=== PATIENT | male | born 1945 | race Caucasian/White ===

== ENCOUNTER 2016-08-10 03:01 | Emergency (ER) | payer OTHER ==
--- NOTE | 2016-08-10 03:06 | EDPHY ---
H & P HPI/ROS: HPI CHIEF COMPLAINT: I would like my Ngo catheter changed HISTORY OF PRESENT ILLNESS: This patient is a 70-year-old male who is a paraplegic L3-L4 partial, he presents emergency room in the middle the night by EMS from his private residence requesting that he get his Ngo catheter changed. This patient tells me that he has a indwelling Ngo catheter that he usually gets changed whenever he feels like it. He tells me the last time his Ngo catheter was changed was 03/17/2016. He used to get his Ngo catheter changed every 6 weeks however he tells me that his body was rejecting the catheter and now he gets whenever he feels the need to. He tells me it has been leaking urine and he tells me that because it has been leaking urine he is requesting a Ngo catheter change. When I asked him where he gets catheter change normally he tells me he just comes to the emergency room for the past 4-5 fully changes over the past few years. Patient denies fever, back pain, abdominal pain, chest pain or shortness of breath he does tell me that he usually gets 5 mg of Valium to help with bladder spasms when we changed his Ngo out. Past Medical History: Incomplete Paraplegic partial L3-L4 level, colostomy, indwelling Ngo, Chronic back pain, SVT, history of urinary sepsis, history of bacteremia, hypoxic respiratory failure, Past Surgical History: Colostomy, back surgery, indwelling Ngo Social History: Denies use of drugs alcohol tobacco products, lives independently in [place] in his own house Family History: Noncontributory ROS REVIEW OF SYSTEMS: A comprehensive 10 point review of systems is otherwise negative aside from elements mentioned in the history of present illness. Exam Constitutional appears well nontoxic, no acute distress, triage nursing summary reviewed, vital signs reviewed, awake/alert. Eyes normal conjunctivae and sclera, EOMI, PERRLA. HENT normal inspection, atraumatic, moist mucus membranes, no epistaxis, neck supple/ no meningismus, no raccoon eyes. Respiratory clear to auscultation bilaterally, normal breath sounds, no respiratory distress, no wheezing. Cardiovascular rate normal, regular rhythm, no murmur, no edema, distal pulses normal. Gastrointestinal soft abdomen, colostomy left lower abdomen, multiple abdominal scars , no rebound, no guarding, normal bowel sounds, no distension, no pulsatile mass. Genitourinary no CVA tenderness. Ngo catheter entrance at the base of the penis dorsal aspect the Ngo catheter does not transversus penile urethra. Musculoskeletal no midline vertebral tenderness, full range of motion, no calf swelling, no tenderness of extremities, no meningismus, good pulses, neurovascularly intact. Skin pink, warm, & dry, no rash, skin atraumatic. Neurologic awake, alert and oriented x 3, AAOx3, moves all 4 extremities equally, motor intact, sensory intact, CN II-XII intact, normal cerebellar, normal vision, normal speech. Psychiatric normal mood/affect. Heme/Lymph/Immune no lymphadenopathy. Differential Diagnosis: Includes but is not limited to in a particular order, need for Ngo change, old Ngo, obstructive fully, leaking Ngo, need for suprapubic or partial suprapubic Ngo catheter change this Ngo catheter transverses the dorsum of the base of the penile shaft does not go through his penile urethra Medical Decision Making: This patient appears well here nontoxic no fever, is not septic has no complaints requesting p.o. Valium for spasms when Ngo goes in. Patient is a fully that enters the base of the dorsum of the penis. This will be changed for the patient at his request. Re-evaluation: 0424: Patient has new Ngo catheter in place. It is not leaking. Patient is comfortable agreeable for discharge. He is resting comfortably no acute distress. Good urine output from new Ngo catheter. Source: Patient - Personal History Tetanus Vaccine Date: 2-3 years ago - Medical/Surgical History Hx Asthma: No Hx Chronic Respiratory Disease: No Hx Diabetes: No Hx Cardiac Disease: No Hx Renal Disease: No Hx Cirrhosis: No Hx Alcoholism: No Hx HIV/AIDS: No Hx Splenectomy or Spleen Trauma: No Other PMH: Back surgery x5, shoulder surgery x2, hand surgery, colostomy, paraplegic since 1970; chronic indwelling ngo catheter;botox to bladder; chronic pain. - Social History Smoking Status: Never smoked Constitutional: Initial Vital Signs Temperature (C) 36.4 C 08/10/16 03:05 Heart Rate 63 08/10/16 03:05 Respiratory Rate 18 08/10/16 03:05 Blood Pressure 140/85 H 08/10/16 03:05 O2 Sat (%) 89 L 08/10/16 03:05 O2 Delivery Mode Room Air Allergies/Adverse Reactions: promethazine HCl [From Phenergan] Allergy (Intermediate, Verified 03/17/16 04:53 ) Other-Enter Comments ANANDA Inhibitors [Ananda Inhibitors] Allergy (Mild, Verified 03/17/16 04:53) Penicillins Allergy (Mild, Verified 03/17/16 04:53) Rash DUST AND MOLDS Allergy (Intermediate, Uncoded 05/07/14 07:40) Rash Home Medications: Medication Instructions Recorded Bisoprolol Fumarate [Zebeta (*)] 5 mg PO DAILY 03/02/15 Losartan Potassium [Cozaar] 100 mg PO DAILY 03/02/15 Travoprost Z 0.004% [Travatan Z 1 drops EACHEYE HS 03/02/15 0.004% (*)] amLODIPine BESYLATE [Norvasc 10 mg 10 mg PO DAILY 03/02/15 (*)] Acetaminophen [Tylenol 325mg (*)] 325 - 650 mg PO Q4 PRN #0 tab 05/16/15 Lyrica 08/10/16 traZODone 08/10/16 Medical Decision Making - Data Points Medications Given: Discontinued Medications Diazepam (Valium) 5 mg PO EDNOW ONE Stop: 08/10/16 03:14 Last Admin: 08/10/16 03:26 Dose: 5 mg Departure - Departure Disposition: Home, Routine, Self-Care Clinical Impression: Ngo catheter in place Problem with Ngo catheter Qualifiers: Encounter type: initial encounter Qualifier Code: (T83.9XXA) Unspecified complication of genitourinary prosthetic device, implant and graft, initial encounter Condition: Good Instructions: Ngo Catheter Placement and Care (ED) Referrals: Jose Alberto Carmichael MD [Primary Care Provider] - As per Instructions
[2016-08-10] MEDS ORDERED: DIAZEPAM 5 MG TAB PO ONE (03:13)
[2016-08-10 05:27] VITALS: BP 98/54; PULSE 70; RESP 14; TEMP 97.7; O2SAT 93
== END 2016-08-10 05:26 | disposition home or self-care (01) ==
LOC: EDUNIT#
PROC: 0T9B70Z Drainage of Bladder with Drainage Device, Via Natural or Artificial Opening (ICD-10-PCS; principal; 2016-08-10)
DX: T83.9XXA Unspecified complication of genitourinary prosthetic device, implant and graft, initial encounter (principal); Y73.2 Prosthetic and other implants, materials and accessory gastroenterology and urology devices associated with adverse incidents

== ENCOUNTER 2016-09-08 18:16 | Emergency (ER) | payer OTHER ==
[2016-09-08] MEDS ORDERED: DIAZEPAM 5 MG TAB PO ONE (18:44)
--- NOTE | 2016-09-08 19:25 | EDPHY ---
H & P Stated Complaint: SPASMS IN BLADDER- POSSIBLE DISLODGED CATH Time Seen by Provider: 09/08/16 18:26 HPI/ROS: CHIEF COMPLAINT: Ngo catheter dislodged HISTORY OF PRESENT ILLNESS: 70-year-old male paraplegia and chronic indwelling Ngo catheter presents emergency department complaining of bladder spasms and a Ngo catheter that is not draining urine. Patient was napping this afternoon when he turned over and talked on his Ngo catheter, since this time he has been draining urine around the catheter and has had intermittent bladder spasms. He denies nausea or vomiting, no fevers., no blood in urine. REVIEW OF SYSTEMS: A comprehensive 10 point review of systems is otherwise negative aside from elements mentioned in the history of present illness. 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 - Social History Smoking Status: Never smoked - Physical Exam Exam: GEN: Awake, alert, oriented, no acute distress RESP: nl resp effort Abdomen: Soft, nontender : Ngo catheter inserted at base of penis, no surrounding erythema or bleeding. Constitutional: Initial Vital Signs Temperature (C) 36.3 C 09/08/16 18:17 Heart Rate 66 09/08/16 18:17 Respiratory Rate 18 09/08/16 18:17 Blood Pressure 139/81 H 09/08/16 18:17 O2 Sat (%) 95 09/08/16 18:17 O2 Delivery Mode Room Air Allergies/Adverse Reactions: promethazine HCl [From Phenergan] Allergy (Intermediate, Verified 03/17/16 04:53 ) Other-Enter Comments ANANDA Inhibitors [Ananda Inhibitors] Allergy (Mild, Verified 03/17/16 04:53) Penicillins Allergy (Mild, Verified 03/17/16 04:53) Rash DUST AND MOLDS Allergy (Intermediate, Uncoded 05/07/14 07:40) Rash Home Medications: Medication Instructions Recorded Bisoprolol Fumarate [Zebeta (*)] 5 mg PO DAILY 03/02/15 Losartan Potassium [Cozaar] 100 mg PO DAILY 03/02/15 Travoprost Z 0.004% [Travatan Z 1 drops EACHEYE HS 03/02/15 0.004% (*)] amLODIPine BESYLATE [Norvasc 10 mg 10 mg PO DAILY 03/02/15 (*)] Acetaminophen [Tylenol 325mg (*)] 325 - 650 mg PO Q4 PRN #0 tab 05/16/15 Ciprofloxacin [Cipro] 500 mg PO BID #6 tab 08/10/16 Lyrica 08/10/16 traZODone 08/10/16 Medical Decision Making ED Course/Re-evaluation: Ngo catheter removed by nurse and new Ngo catheter placed, good urine return. Patient will be discharged with instructions to return for any questions or concerns. - Data Points Medications Given: Discontinued Medications Diazepam (Valium) 5 mg PO EDNOW ONE Stop: 09/08/16 18:45 Last Admin: 09/08/16 18:52 Dose: 5 mg Departure - Departure Disposition: Home, Routine, Self-Care Clinical Impression: Malfunction of Ngo catheter Qualifiers: Encounter type: initial encounter Qualified Code(s): T83.011A - Breakdown ( mechanical) of indwelling urethral catheter, initial encounter Condition: Good Instructions: Ngo Catheter Placement and Care (ED) Additional Instructions: Return to the emergency department for any new symptoms, questions or concerns. Referrals: Jose Alberto Carmichael MD [Primary Care Provider] - As per Instructions
[2016-09-08 19:34] VITALS: BP 132/76; PULSE 81; RESP 17; TEMP 98.1; O2SAT 96
== END 2016-09-08 19:33 | disposition home or self-care (01) ==
PROC: 0T9B70Z Drainage of Bladder with Drainage Device, Via Natural or Artificial Opening (ICD-10-PCS; principal; 2016-09-08)
DX: T83.011A Breakdown (mechanical) of indwelling urethral catheter, initial encounter (principal); Y82.8 Other medical devices associated with adverse incidents

== ENCOUNTER 2016-11-06 19:50 | Emergency (ER) | payer OTHER ==
[2016-11-06 19:59] VITALS: BP 137/82; PULSE 84; RESP 16; TEMP 97.7; O2SAT 92
[2016-11-06] MEDS ORDERED: DIAZEPAM 5 MG TAB ONE (20:18)
--- NOTE | 2016-11-06 20:19 | EDPHY ---
H & P Stated Complaint: leaking Ngo, bladder spasms x3-4h Time Seen by Provider: 11/06/16 20:05 HPI/ROS: Chief Complaint: Bladder spasm, ngo problem HPI: 71-year-old L4-5 paraplegic with an indwelling Ngo catheter presenting with back pain and cramping consistent with bladder spasms. Patient states that he last had his Ngo changed about 10 weeks ago which is the usual time friend that he has his catheter changed. He has been having increasing spasm and some leaking around the catheter site for the last 3-4 hours. No fevers or chills. Has not had frequent urinary tract infections and states the last was about 4 years ago. No nausea or vomiting. He is here for catheter change ROS: 10 point Review of Systems is negative except as noted in the HPI. PMH: Paraplegic, ileostomy, indwelling Ngo catheter, hypertension Social History: No smoking, no alcohol, no recreational drug use Family History: non-contributory Physical Exam: Gen: Awake, Alert, No Distress HEENT: Nose: no rhinorrhea Eyes: PERRLA, EOMI Mouth: Moist mucosa Neck: Supple, no JVD Chest: No distress Heart: Normal radial pulses Abd: Soft, ileostomy site is nontender, well perfused, no guarding Skin: no rash Neuro: CN II-XII intact, Sensation grossly in bilateral upper extremities - Personal History Current Tetanus/Diphtheria Vaccine: Yes Current Tetanus Diphtheria and Acellular Pertussis (TDAP): Yes Tetanus Vaccine Date: 2008 - Medical/Surgical History Hx Asthma: No Hx Chronic Respiratory Disease: No Hx Diabetes: No Hx Cardiac Disease: No Hx Renal Disease: No Hx Cirrhosis: No Hx Alcoholism: No Hx HIV/AIDS: No Hx Splenectomy or Spleen Trauma: No Other PMH: Back surgery x5, shoulder surgery x2, hand surgery, colostomy, paraplegic since 1970; chronic indwelling ngo catheter;botox to bladder; chronic pain., 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 - Social History Smoking Status: Never smoked Constitutional: Initial Vital Signs Temperature (C) 36.5 C 11/06/16 19:57 Heart Rate 84 11/06/16 19:57 Respiratory Rate 16 11/06/16 19:57 Blood Pressure 137/82 H 11/06/16 19:57 O2 Sat (%) 92 11/06/16 19:57 O2 Delivery Mode Room Air Allergies/Adverse Reactions: promethazine HCl [From Phenergan] Allergy (Intermediate, Verified 03/17/16 04:53 ) Other-Enter Comments ANANDA Inhibitors [Ananda Inhibitors] Allergy (Mild, Verified 03/17/16 04:53) Penicillins Allergy (Mild, Verified 03/17/16 04:53) Rash DUST AND MOLDS Allergy (Intermediate, Uncoded 05/07/14 07:40) Rash Home Medications: Medication Instructions Recorded Bisoprolol Fumarate [Zebeta (*)] 5 mg PO DAILY 03/02/15 Losartan Potassium [Cozaar] 100 mg PO DAILY 03/02/15 Travoprost Z 0.004% [Travatan Z 1 drops EACHEYE HS 03/02/15 0.004% (*)] amLODIPine BESYLATE [Norvasc 10 mg 10 mg PO DAILY 03/02/15 (*)] Acetaminophen [Tylenol 325mg (*)] 325 - 650 mg PO Q4 PRN #0 tab 05/16/15 Lyrica 08/10/16 traZODone 08/10/16 Ciprofloxacin [Cipro] 500 mg PO BID #6 tab 11/06/16 Medical Decision Making - Data Points Medications Given: Discontinued Medications Diazepam (Valium) 5 mg PO EDNOW ONE Stop: 11/06/16 20:26 Last Admin: 11/06/16 20:26 Dose: 5 mg Departure - Departure Disposition: Home, Routine, Self-Care Clinical Impression: Ngo catheter problem Condition: Good Instructions: Ngo Catheter Placement and Care (ED) Additional Instructions: Follow up with primary care physician in 3-4 days for re-evaluation. Return emergency department for fevers, chills, lightheadedness, nausea, vomiting, or any other concerns. Referrals: Jose Alberto Carmichael MD [Primary Care Provider] - As per Instructions Prescriptions: Ciprofloxacin [Cipro] 500 mg PO BID #6 tab
[2016-11-06] MEDS ORDERED: DIAZEPAM 5 MG TAB PO ONE (20:25)
[2016-11-06 21:04] LABS: COLOR YELLOW; LEUKOCYTE ESTERASE,URINE 3+ (NEGATIVE); NITRITE,URINE NEGATIVE (NEGATIVE)
[2016-11-06 21:30] LABS: BACTERIA 3+ /hpf (NONE SEEN); MUCUS 3+ /lpf (NONE-1+); WBC,URINE 50-182 /hpf (0-3)
== END 2016-11-06 20:50 | disposition home or self-care (01) ==
DX: T83.038A Leakage of other urinary catheter, initial encounter (principal); Y82.8 Other medical devices associated with adverse incidents

== ENCOUNTER 2016-12-24 03:19 | Emergency (ER) | payer OTHER ==
[2016-12-24] MEDS ORDERED: DIAZEPAM 5 MG TAB ONE (03:31)
[2016-12-24] MEDS ORDERED: DIAZEPAM 5 MG TAB PO ONE (03:38)
[2016-12-24 03:46] VITALS: PULSE 91
[2016-12-24 04:34] VITALS: BP 146/93; RESP 73; TEMP 98.2; O2SAT 92
--- NOTE | 2016-12-24 04:37 | EDPHY ---
H & P Time Seen by Provider: 12/24/16 03:23 HPI/ROS: HPI The patient presents brought in by ambulance for urinary retention. He has an indwelling Ngo in place because of neurogenic bladder from paraplegia. He says he noted bladder spasms earlier tonight. He was unable to void and felt distension of his abdomen. This happens periodically. He called the on-call urologist and was instructed to come to the emergency room. REVIEW OF SYSTEMS Constitutional: No fever, no chills. Eyes: No discharge. ENT: No sore throat. Cardiovascular: No chest pain, no palpitations. Respiratory: No cough, no shortness of breath. Gastrointestinal: No abdominal pain, no vomiting. Genitourinary: No hematuria. Musculoskeletal: No back pain. Skin: No rashes. Neurological: No headache. PMHx: Paraplegia, chronic indwelling Ngo Soc Hx: Lives at home PHYSICAL General Appearance: Alert, no distress Eyes: Pupils equal and round no pallor or injection ENT, Mouth: Mucous membranes moist Respiratory: Breathing comfortably Cardiovascular: Regular rate and rhythm Gastrointestinal: Abdomen is soft and non-tender, no masses, bowel sounds normal Neurological: A&O Skin: Warm and dry, no rashes Musculoskeletal: Neck is supple non tender Extremities: Lower extremities with atrophy Psychiatric: Patient is oriented X 3, there is no agitation Source: Patient, EMS - Personal History Tetanus Vaccine Date: 2008 - Medical/Surgical History Hx Asthma: No Hx Chronic Respiratory Disease: No Hx Diabetes: No Hx Cardiac Disease: No Hx Renal Disease: No Hx Cirrhosis: No Hx Alcoholism: No Hx HIV/AIDS: No Hx Splenectomy or Spleen Trauma: No Other PMH: Back surgery x5, shoulder surgery x2, hand surgery, colostomy, paraplegic since 1970; chronic indwelling ngo catheter;botox to bladder; chronic pain., 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 - Social History Smoking Status: Never smoked Constitutional: Initial Vital Signs Temperature (C) 36.7 C 12/24/16 03:20 Heart Rate 91 12/24/16 03:20 Respiratory Rate 18 12/24/16 03:20 Blood Pressure 158/110 H 12/24/16 03:20 O2 Sat (%) 95 12/24/16 03:20 O2 Delivery Mode Room Air Allergies/Adverse Reactions: promethazine HCl [From Phenergan] Allergy (Intermediate, Verified 12/24/16 03:39 ) Other-Enter Comments ANANDA Inhibitors [Ananda Inhibitors] Allergy (Mild, Verified 12/24/16 03:39) Penicillins Allergy (Mild, Verified 12/24/16 03:39) Rash DUST AND MOLDS Allergy (Intermediate, Uncoded 12/24/16 03:39) Rash Home Medications: Medication Instructions Recorded Bisoprolol Fumarate [Zebeta (*)] 5 mg PO DAILY 03/02/15 Losartan Potassium [Cozaar] 100 mg PO DAILY 03/02/15 Travoprost Z 0.004% [Travatan Z 1 drops EACHEYE HS 03/02/15 0.004% (*)] amLODIPine BESYLATE [Norvasc 10 mg 10 mg PO DAILY 03/02/15 (*)] Acetaminophen [Tylenol 325mg (*)] 325 - 650 mg PO Q4 PRN #0 tab 05/16/15 Lyrica 08/10/16 traZODone 08/10/16 Ciprofloxacin [Cipro] 500 mg PO BID #6 tab 11/06/16 Ciprofloxacin 500Mg Prepack#2 1 btl TAKEHOME EDNOW #0 btl 12/24/16 [Cipro 500Mg Prepack#2] Ciprofloxacin [Cipro] 500 mg PO BID #6 tab 12/24/16 Omeprazole 12/24/16 Oxybutynin 12/24/16 Medical Decision Making Differential Diagnosis: This is a 71-year-old man who is a paraplegic with chronic indwelling Ngo who presents brought in by ambulance for urinary retention. This happens periodically and he believes it is related to bladder spasm. Other possibilities include urinary tract infection or BPH. In the emergency room new Ngo catheter was placed and drained about 300 mL of urine. The patient felt much better. He requests ciprofloxacin as he has taken this for prophylaxis several times before. I will prescribe this for him and I have advised him to follow up with his urologist. - Data Points Medications Given: Discontinued Medications Ciprofloxacin (Cipro 500mg Prepack#2) 1 btl TAKEHOME EDNOW ONE Stop: 12/24/16 04:46 Last Admin: 12/24/16 04:46 Dose: 1 btl Diazepam (Valium) 5 mg PO EDNOW ONE Stop: 12/24/16 03:39 Last Admin: 12/24/16 03:46 Dose: 5 mg Departure - Departure Disposition: Home, Routine, Self-Care Clinical Impression: Encounter for Ngo catheter replacement Condition: Good Instructions: Ciprofloxacin (By mouth), Ngo Catheter Placement and Care (ED) Referrals: Edwar Prince MD [Medical Doctor] - As per Instructions Prescriptions: Ciprofloxacin [Cipro] 500 mg PO BID #6 tab Ciprofloxacin 500Mg Prepack#2 [Cipro 500Mg Prepack#2] 1 btl TAKEYASHIRAE EDNOW #0 btl
[2016-12-24] MEDS ORDERED: CIPROFLOXACIN 500MG PREPACK#2 BTL TAKEHOME ONE ×2 (04:42→04:45)
== END 2016-12-24 05:11 | disposition home or self-care (01) ==
LOC: EDUNIT#
PROC: 0T9B70Z Drainage of Bladder with Drainage Device, Via Natural or Artificial Opening (ICD-10-PCS; principal; 2016-12-24)
DX: Z46.6 Encounter for fitting and adjustment of urinary device (principal)

== ENCOUNTER → 2017-01-27 | Outpatient (CLI) | payer OTHER ==
[~2017-01-27] MED LIST: IOPAMIDOL (ISOVUE-300) 100 ML BTL ONE
[2017-01-27 15:54] LABS: CREATININE 0.8 mg/dL (0.7-1.3); GLOMERULAR FILTRATION RATE > 60
== END ==
LOC: FIMAGING 14:40
PROVIDERS: ATTEND Specialist
DX: Z01.818 Encounter for other preprocedural examination (principal); R32 Unspecified urinary incontinence; Z96.0 Presence of urogenital implants; R93.49 Abnormal radiologic findings on diagnostic imaging of other urinary organs
CPT/HCPCS: 74177; Q9967

== ENCOUNTER 2017-03-29 01:34 | Emergency (ER) | payer OTHER ==
[2017-03-29 01:56] VITALS: RESP 18; TEMP 98.6
--- NOTE | 2017-03-29 02:16 | EDPHY ---
H & P Stated Complaint: lower abd pain w/ diarrhea Time Seen by Provider: 03/29/17 02:06 HPI/ROS: Chief Complaint: Abdominal pain HPI: 71-year-old paraplegic with an ileostomy presenting with abdominal pain. Patient states that last week he had watery stools. Feels resolved 2 days ago but yesterday developed lower abdominal pain. This got worse significantly at midnight. No nausea or vomiting. He has continued to have ostomy output. States very dark but he is on iron supplements and has been taking Pepto- Bismol. Pain is primarily on the left hand side but he also has some on the right as well. No fevers or chills. Patient also states that he has is having some difficulty with his Ngo catheter, but he believes this is unrelated abdominal pain. ROS: 10 point Review of Systems is negative except as noted in the HPI. 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 Nontender. Back: no CVA tenderness, no midline tenderness Ext: no edema, non-tender Skin: no rash Neuro: CN II-XII intact, Sensation grossly intact, Strength 5/5 in bilateral upper and lower extremities - Personal History Current Tetanus Diphtheria and Acellular Pertussis (TDAP): Yes Tetanus Vaccine Date: 2008 - Medical/Surgical History Hx Asthma: No Hx Chronic Respiratory Disease: No Hx Diabetes: No Hx Cardiac Disease: No Hx Renal Disease: No Hx Cirrhosis: No Hx Alcoholism: No Hx HIV/AIDS: No Hx Splenectomy or Spleen Trauma: No Other PMH: Back surgery x5, shoulder surgery x2, hand surgery, colostomy, paraplegic since 1970; chronic indwelling ngo catheter;botox to bladder; chronic pain., 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 - Social History Smoking Status: Never smoked Constitutional: Initial Vital Signs Temperature (C) 37.0 C 03/29/17 01:35 Heart Rate 102 H 03/29/17 01:35 Respiratory Rate 18 03/29/17 01:35 Blood Pressure 126/77 H 03/29/17 01:35 O2 Sat (%) 94 03/29/17 01:35 O2 Delivery Mode Room Air Allergies/Adverse Reactions: promethazine HCl [From Phenergan] Allergy (Intermediate, Verified 03/29/17 01:46 ) Other-Enter Comments ANANDA Inhibitors [Ananda Inhibitors] Allergy (Mild, Verified 03/29/17 01:46) Penicillins Allergy (Mild, Verified 03/29/17 01:46) Rash DUST AND MOLDS Allergy (Intermediate, Uncoded 03/29/17 01:46) Rash Home Medications: Medication Instructions Recorded Bisoprolol Fumarate [Zebeta (*)] 5 mg PO DAILY 03/02/15 Losartan Potassium [Cozaar] 100 mg PO DAILY 03/02/15 Travoprost Z 0.004% [Travatan Z 1 drops EACHEYE HS 03/02/15 0.004% (*)] amLODIPine BESYLATE [Norvasc 10 mg 10 mg PO DAILY 03/02/15 (*)] Omeprazole 12/24/16 Myrbetriq 03/29/17 Travitan 03/29/17 Medical Decision Making - Diagnostics Imaging Results: CT scan shows a new left inguinal hernia containing loops of bowel without evidence of inflammation or obstruction or incarceration per Dr. Hadley. Imaging: Discussed imaging studies w/ call center team leader Radiologist ED Course/Re-evaluation: 8-year-old male presenting with abdominal pain, history of multiple abdominal surgeries. CT scan shows an inguinal hernia containing small bowel. I have re- examined him and am able to easily reduce this. His abdomen is soft and benign. Certainly no some obstructive symptoms or findings at this time. He is comfortable. He does not have an acute surgical abdomen. Will discharge him with follow up with surgery as an outpatient. I have referred him to Dr. Joseph but he says he would prefer to follow up with his surgeon upper respiratory in [facility]. Patient also had his Ngo catheter changed here his request. He will be discharged with follow-up as an outpatient. - Data Points Laboratory Results: Laboratory Results 03/29/17 02:24 03/29/17 02:24 03/29/17 03/29/17 03/29/17 02:24 02:24 02:24 WBC 6.06 10^3/uL 10^3/uL (3.80-9.50) RBC 4.30 10^6/uL L 10^6/uL (4.40-6.38) Hgb 13.4 g/dL L g/dL (13.7-17.5) Hct 39.5 % L % (40.0-51.0) MCV 91.9 fL fL (81.5-99.8) MCH 31.2 pg pg (27.9-34.1) MCHC 33.9 g/dL g/dL (32.4-36.7) RDW 14.6 % % (11.5-15.2) Plt Count 174 10^3/uL 10^3/uL (150-400) MPV 8.7 fL fL (8.7-11.7) Neut % (Auto) 81.6 % H % (39.3-74.2) Lymph % (Auto) 10.4 % L % (15.0-45.0) [place] % (Auto) 6.9 % % (4.5-13.0) Eos % (Auto) 0.5 % L % (0.6-7.6) Baso % (Auto) 0.3 % % (0.3-1.7) Nucleat RBC Rel Count 0.0 % % (0.0-0.2) Absolute Neuts (auto) 4.94 10^3/uL 10^3/uL (1.70-6.50) Absolute Lymphs (auto) 0.63 10^3/uL L 10^3/uL (1.00-3.00) Absolute Monos (auto) 0.42 10^3/uL 10^3/uL (0.30-0.80) Absolute Eos (auto) 0.03 10^3/uL 10^3/uL (0.03-0.40) Absolute Basos (auto) 0.02 10^3/uL 10^3/uL (0.02-0.10) Absolute Nucleated RBC 0.00 10^3/uL 10^3/uL (0-0.01) Immature Gran % 0.3 % % (0.0-1.1) Immature Gran # 0.02 10^3/uL 10^3/uL (0.00-0.10) Sodium 136 mEq/L mEq/L (134-144) Potassium 3.1 mEq/L L mEq/L (3.5-5.2) Chloride 100 mEq/L mEq/L (97-110) Carbon Dioxide 22 mEq/l mEq/l (22-31) Anion Gap 14 mEq/L mEq/L (8-16) BUN 22 mg/dL mg/dL (7-23) Creatinine 0.7 mg/dL mg/dL (0.7-1.3) Estimated GFR > 60 Glucose 135 mg/dL H mg/dL (70-100) Calcium 9.1 mg/dL mg/dL (8.5-10.4) Total Bilirubin 0.7 mg/dL mg/dL (0.1-1.4) Conjugated Bilirubin 0.3 mg/dL mg/dL (0.0-0.5) Unconjugated Bilirubin 0.4 mg/dL mg/dL (0.0-1.1) AST 23 IU/L IU/L (17-59) ALT 35 IU/L IU/L (21-72) Alkaline Phosphatase 95 IU/L IU/L (38-126) Total Protein 7.9 g/dL g/dL (6.3-8.2) Albumin 4.3 g/dL g/dL (3.5-5.0) Lipase 86 IU/L IU/L (23-300) Urine Color YELLOW Urine Appearance HAZY Urine pH 6.0 (5.0-7.5) Ur Specific [place] 1.016 (1.002-1.030) Urine Protein 1+ H (NEGATIVE) Urine Ketones NEGATIVE (NEGATIVE) Urine Blood 2+ H (NEGATIVE) Urine Nitrate NEGATIVE (NEGATIVE) Urine Bilirubin NEGATIVE (NEGATIVE) Urine Urobilinogen NEGATIVE EU EU (0.2-1.0) Ur Leukocyte Esterase 3+ H (NEGATIVE) Urine RBC 15-25 /hpf H /hpf (0-3) Urine WBC 50-182 /hpf H /hpf (0-3) Ur Epithelial Cells NONE SEEN /lpf /lpf (NONE-1+) Urine Bacteria 4+ /hpf H /hpf (NONE SEEN) Hyaline Casts 5-15 /lpf /lpf (0-1) Urine Mucus 4+ /lpf H /lpf (NONE-1+) Urine Glucose NEGATIVE (NEGATIVE) Medications Given: Discontinued Medications Diazepam (Valium) 5 mg PO EDNOW ONE Stop: 03/29/17 04:31 Last Admin: 03/29/17 04:31 Dose: 5 mg Sodium Chloride (Ns) 1,000 mls @ 0 mls/hr IV ONCE ONE; Wide Open PRN Reason: Protocol Stop: 03/29/17 02:30 Last Admin: 03/29/17 02:31 Dose: 1,000 mls Departure - Departure Disposition: Home, Routine, Self-Care Clinical Impression: Hernia Condition: Good Instructions: Inguinal Hernia (ED) Additional Instructions: Follow up with your general surgeon or with Dr. Joseph for evaluation for possible hernia repair. Return emergency depart for increasing abdominal pain, decreased ostomy output, nausea, vomiting, fevers, chills, or any other concerns. Referrals: Patient,NotPresent [Unknown] - As per Instructions Reji Joseph MD [Medical Doctor] - As per Instructions
[2017-03-29] MEDS ORDERED: NS 1,000 ML IV ONE (02:29)
[2017-03-29 02:38] LABS: % IMMATURE GRANULYOCYTES 0.3 % (0.0-1.1); ABSOLUTE IMMATURE GRANULOCYTES 0.02 10^3/uL (0.00-0.10); ADD DIFF? NO; ADD MORPH? NO; ADD SCAN? NO; ATYPICAL LYMPHOCYTE FLAG 90 (0-99); FRAGMENT RBC FLAG 0 (0-99); HEMATOCRIT 39.5 % (40.0-51.0); HEMOGLOBIN 13.4 g/dL (13.7-17.5); LEFT SHIFT FLG 0 (0-99); LIPEMIA HEMOLYSIS FLAG 90 (0-99); MEAN CELL HEMOGLOBIN 31.2 pg (27.9-34.1); MEAN CELL HEMOGLOBIN CONCENTR. 33.9 g/dL (32.4-36.7); MEAN CELL VOLUME 91.9 fL (81.5-99.8); MEAN PLATELET VOLUME 8.7 fL (8.7-11.7); PLATELET CLUMPS FLAG 10 (0-99); PLATELET COUNT 174 10^3/uL (150-400); RED CELL DISTRIBUTION WIDTH 14.6 % (11.5-15.2)
[2017-03-29 02:41] LABS: COLOR YELLOW; LEUKOCYTE ESTERASE,URINE 3+ (NEGATIVE); NITRITE,URINE NEGATIVE (NEGATIVE)
[2017-03-29] MEDS ORDERED: IOPAMIDOL (ISOVUE-300) 100 ML BTL ONE (02:44)
[2017-03-29 02:51] LABS: BACTERIA 4+ /hpf (NONE SEEN); MUCUS 4+ /lpf (NONE-1+); RBC,URINE 15-25 /hpf (0-3); WBC,URINE 50-182 /hpf (0-3)
[2017-03-29 02:52] LABS: ALANINE AMINOTRANSFERASE 35 IU/L (21-72); ALBUMIN 4.3 g/dL (3.5-5.0); ALKALINE PHOSPHATASE 95 IU/L (38-126); ANION GAP 14 mEq/L (8-16); ASPARTATE AMINOTRANSFERASE 23 IU/L (17-59); BILIRUBIN,TOTAL 0.7 mg/dL (0.1-1.4); BILIRUBIN-CONJUGATED 0.3 mg/dL (0.0-0.5); BILIRUBIN-UNCONJUGATED 0.4 mg/dL (0.0-1.1); CALCIUM 9.1 mg/dL (8.5-10.4); CARBON DIOXIDE 22 mEq/l (22-31); CHLORIDE 100 mEq/L (97-110); CREATININE 0.7 mg/dL (0.7-1.3); GLOMERULAR FILTRATION RATE > 60; GLUCOSE 135 mg/dL (70-100); POTASSIUM 3.1 mEq/L (3.5-5.2); SODIUM 136 mEq/L (134-144); TOTAL PROTEIN 7.9 g/dL (6.3-8.2)
[2017-03-29] MEDS ORDERED: DIAZEPAM 5 MG TAB ONE (04:29)
[2017-03-29] MEDS ORDERED: DIAZEPAM 5 MG TAB PO ONE (04:30)
[2017-03-29] MEDS ORDERED: LIDOCAINE 2% JELLY 20 ML (UROJECT) ONE (04:59)
[2017-03-29 05:37] VITALS: BP 140/89; PULSE 90; O2SAT 93
== END 2017-03-29 05:51 | disposition home or self-care (01) ==
LOC: EDUNIT#
PROC: 3E0337Z Introduction of Electrolytic and Water Balance Substance into Peripheral Vein, Percutaneous Approach (ICD-10-PCS; principal; 2017-03-29)
DX: K46.9 Unspecified abdominal hernia without obstruction or gangrene (principal); E86.9 Volume depletion, unspecified
CPT/HCPCS: 74177; 96360; 99285; Q9967

== ENCOUNTER 2017-06-24 04:03 | Emergency (ER) | payer OTHER ==
[2017-06-24 04:12] VITALS: RESP 16; TEMP 98.6
[2017-06-24] MEDS ORDERED: DIAZEPAM 5 MG TAB PO ONE (04:23)
--- NOTE | 2017-06-24 05:44 | EDPHY ---
H & P Stated Complaint: Urinary catheter blockage. Time Seen by Provider: 06/24/17 04:12 HPI/ROS: HPI The patient presents brought in by ambulance with difficulties with his Ngo catheter. He says for the last several hours he is having intense bladder spasms which are cramping in nature and radiates to his back and have been constant. This is associated with no urine draining from his Ngo. The urine is exiting through his penis and he reports large amounts of urine output. He says this happens periodically and is a sign that he needs to have his catheter changed. His last Ngo catheter was changed in March. He denies any fevers or chills. He does not have any flank pain. REVIEW OF SYSTEMS Constitutional: No fever, no chills. Eyes: No discharge. ENT: No sore throat. Cardiovascular: No chest pain, no palpitations. Respiratory: No cough, no shortness of breath. Gastrointestinal: No abdominal pain, no vomiting. Genitourinary: No hematuria. Musculoskeletal: No back pain. Skin: No rashes. Neurological: No headache. PMHx: Paraplegic, chronic indwelling catheter Soc Hx: Housed PHYSICAL General Appearance: Alert, no distress Eyes: Pupils equal and round no pallor or injection ENT, Mouth: Mucous membranes moist Respiratory: There are no retractions, lungs are clear to auscultation Cardiovascular: Regular rate and rhythm Gastrointestinal: Abdomen is soft and non-tender, no masses, bowel sounds normal Neurological: A&O, moves all extremities Skin: Warm and dry, no rashes Musculoskeletal: Neck is supple non tender Extremities: symmetrical Psychiatric: Patient is oriented X 3, there is no agitation Source: Patient Exam Limitations: No limitations - Personal History Current Tetanus/Diphtheria Vaccine: Unsure Current Tetanus Diphtheria and Acellular Pertussis (TDAP): Unsure Tetanus Vaccine Date: 2008 - Medical/Surgical History Hx Asthma: No Hx Chronic Respiratory Disease: No Hx Diabetes: No Hx Cardiac Disease: No Hx Renal Disease: No Hx Cirrhosis: No Hx Alcoholism: No Hx HIV/AIDS: No Hx Splenectomy or Spleen Trauma: No Other PMH: Back surgery x5, shoulder surgery x2, hand surgery, colostomy, paraplegic since 1970; chronic indwelling ngo catheter;botox to bladder; chronic pain., 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 - Social History Smoking Status: Never smoked Constitutional: Initial Vital Signs Temperature (C) 37.0 C 06/24/17 04:08 Heart Rate 98 06/24/17 04:08 Respiratory Rate 16 06/24/17 04:08 Blood Pressure 157/98 H 06/24/17 04:08 O2 Sat (%) 98 06/24/17 04:08 O2 Delivery Mode Room Air Allergies/Adverse Reactions: promethazine HCl [From Phenergan] Allergy (Intermediate, Verified 03/29/17 01:46 ) Other-Enter Comments ANANDA Inhibitors [Ananda Inhibitors] Allergy (Mild, Verified 03/29/17 01:46) Penicillins Allergy (Mild, Verified 03/29/17 01:46) Rash DUST AND MOLDS Allergy (Intermediate, Uncoded 03/29/17 01:46) Rash Home Medications: Medication Instructions Recorded Bisoprolol Fumarate [Zebeta (*)] 5 mg PO DAILY 03/02/15 Losartan Potassium [Cozaar] 100 mg PO DAILY 03/02/15 Travoprost Z 0.004% [Travatan Z 1 drops EACHEYE HS 03/02/15 0.004% (*)] amLODIPine BESYLATE [Norvasc 10 mg 10 mg PO DAILY 03/02/15 (*)] Omeprazole 12/24/16 Myrbetriq 03/29/17 Travitan 03/29/17 Ciprofloxacin [Cipro] 500 mg PO BID #14 tab 06/24/17 Medical Decision Making Differential Diagnosis: This is a 71-year-old male who presents with malfunctioning Ngo catheter. Urine is seeping around the catheter and he is having bladder spasms. This happens periodically he states. In the emergency department, we removed his old Ngo catheter and inserted a new 1. When the catheter was inserted, there was pus or sediment initially and then urine became clear. We will start the patient on ciprofloxacin as this is the antibiotic he has been on several occasions when he has his catheter changed. I have sent a urine culture and we will await urine sensitivities to guide any further treatment. He will be discharged home. - Data Points Laboratory Results: 06/24/17 06:21 Urine Color PALE YELLOW Urine Appearance CLEAR Urine pH 6.0 (5.0-7.5) Ur Specific [place] 1.002 (1.002-1.030) Urine Protein NEGATIVE (NEGATIVE) Urine Ketones NEGATIVE (NEGATIVE) Urine Blood 2+ H (NEGATIVE) Urine Nitrate NEGATIVE (NEGATIVE) Urine Bilirubin NEGATIVE (NEGATIVE) Urine Urobilinogen NEGATIVE EU EU (0.2-1.0) Ur Leukocyte Esterase 1+ H (NEGATIVE) Urine RBC 1-3 /hpf /hpf (0-3) Urine WBC 5-10 /hpf H /hpf (0-3) Ur Epithelial Cells TRACE /lpf /lpf (NONE-1+) Urine Bacteria 1+ /hpf H /hpf (NONE SEEN) Urine Mucus TRACE /lpf /lpf (NONE-1+) Urine Glucose NEGATIVE (NEGATIVE) Medications Given: Discontinued Medications Ciprofloxacin (Cipro) 500 mg PO EDNOW ONE PRN Reason: Protocol Stop: 06/24/17 06:14 Last Admin: 06/24/17 06:45 Dose: 500 mg Ciprofloxacin (Cipro 500mg Prepack#2) 1 btl TAKEHOME EDNOW ONE Stop: 06/24/17 06:14 Last Admin: 06/24/17 06:51 Dose: 1 btl Diazepam (Valium) 5 mg PO EDNOW ONE Stop: 06/24/17 04:24 Last Admin: 06/24/17 04:39 Dose: 5 mg Departure - Departure Disposition: Home, Routine, Self-Care Clinical Impression: Ngo catheter problem Condition: Good Instructions: Ngo Catheter Placement and Care (ED) Referrals: Jose Alberto Carmichael MD [Primary Care Provider] - As per Instructions Edwar Prince MD [Medical Doctor] - As per Instructions Prescriptions: Ciprofloxacin [Cipro] 500 mg PO BID #14 tab
[2017-06-24] MEDS ORDERED: CIPROFLOXACIN 500MG PREPACK#2 BTL TAKEHOME ONE (06:13)
[2017-06-24] MEDS ORDERED: CIPROFLOXACIN 500 MG TAB PO ONE (06:13)
[2017-06-24 06:29] LABS: COLOR PALE YELLOW; LEUKOCYTE ESTERASE,URINE 1+ (NEGATIVE); NITRITE,URINE NEGATIVE (NEGATIVE)
[2017-06-24 06:31] LABS: BACTERIA 1+ /hpf (NONE SEEN); MUCUS TRACE /lpf (NONE-1+)
[2017-06-24 07:14] VITALS: BP 127/62; PULSE 69; O2SAT 96
== END 2017-06-24 07:12 | disposition home or self-care (01) ==
LOC: EDUNIT#
PROC: 0T9B70Z Drainage of Bladder with Drainage Device, Via Natural or Artificial Opening (ICD-10-PCS; principal; 2017-06-24)
PROC: 0TPBX0Z Removal of Drainage Device from Bladder, External Approach (ICD-10-PCS; principal; 2017-06-24)
DX: T83.098A Other mechanical complication of other urinary catheter, initial encounter (principal); Y73.2 Prosthetic and other implants, materials and accessory gastroenterology and urology devices associated with adverse incidents

== ENCOUNTER 2017-11-12 07:09 | Emergency (ER) | payer OTHER ==
--- NOTE | 2017-11-12 07:33 | EDPHY ---
H & P Stated Complaint: painful urethra Time Seen by Provider: 11/12/17 07:19 HPI/ROS: CHIEF COMPLAINT: Urethral pain, concerned about possible UTI HISTORY OF PRESENT ILLNESS: The patient presents to the ED with complaints of urethral pain for the past several days. The patient reports his blood pressure has also been elevated. He has been having some vague abdominal cramping. He is concerned that the symptoms are consistent with a urinary tract infection. The patient does have a chronic indwelling Ngo catheter which was last changed on Wednesday. The patient denies any fever or acute flank pain. He denies vomiting. 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 The patient typically receives care from Infectious Disease through Dr. Emery Falk. The patient has no additional acute complaints of cough , congestion or acute pain. REVIEW OF SYSTEMS: A comprehensive 10 point review of systems is otherwise negative aside from elements mentioned in the history of present illness. 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 - Social History Smoking Status: Never smoked - Physical Exam Exam: General Appearance: Alert, no distress Eyes: Pupils equal and round no pallor or injection ENT, Mouth: Mucous membranes moist Respiratory: There are no retractions, lungs are clear to auscultation Cardiovascular: Regular rate and rhythm Gastrointestinal: Abdomen is soft and nontender, no masses, bowel sounds normal Neurological: Wheelchair-bound, chronic lower extremity weakness Skin: Warm and dry, no rashes Musculoskeletal: Neck is supple nontender Extremities: symmetrical, full range of motion Constitutional: Initial Vital Signs Temperature (C) 36.6 C 11/12/17 07:14 Heart Rate 101 H 11/12/17 07:14 Respiratory Rate 16 11/12/17 07:14 Blood Pressure 167/95 H 11/12/17 07:14 O2 Sat (%) 97 04/27/18 07:14 O2 Delivery Mode Room Air Allergies/Adverse Reactions: promethazine HCl [From Phenergan] Allergy (Intermediate, Verified 11/12/17 07:13 ) Other-Enter Comments ANANDA Inhibitors [Ananda Inhibitors] Allergy (Mild, Verified 11/12/17 07:13) Penicillins Allergy (Mild, Verified 11/12/17 07:13) Rash DUST AND MOLDS Allergy (Intermediate, Uncoded 11/12/17 07:13) Rash Home Medications: Medication Instructions Recorded Bisoprolol Fumarate [Zebeta (*)] 5 mg PO DAILY 03/02/15 Losartan Potassium [Cozaar] 100 mg PO DAILY 03/02/15 Travoprost Z 0.004% [Travatan Z 1 drops EACHEYE HS 03/02/15 0.004% (*)] amLODIPine BESYLATE [Norvasc 10 mg 10 mg PO DAILY 03/02/15 (*)] Omeprazole 12/24/16 Myrbetriq 03/29/17 Travitan 03/29/17 Medical Decision Making ED Course/Re-evaluation: The patient presents to the ED for evaluation of urethral discomfort. The patient is likely chronically colonized. He has chronic pyuria. He has no fever, flank pain or significant leukocytosis. Per the patient's request his Ngo catheter was replaced. I did curbside the Infectious Disease service regarding his presentation. 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 The patient has no fever or leukocytosis. At this point time a urine culture will not be obtained as the patient is chronically colonized. He is comfortable being discharged home and returning to the ED for fever, low blood pressure or vomiting. - Data Points Laboratory Results: Laboratory Results 11/12/17 07:40 11/12/17 07:40 11/12/17 11/12/17 11/12/17 07:40 07:40 07:25 WBC 6.64 10^3/uL 10^3/uL (3.80-9.50) RBC 4.76 10^6/uL 10^6/uL (4.40-6.38) Hgb 14.5 g/dL g/dL (13.7-17.5) Hct 43.1 % % (40.0-51.0) MCV 90.5 fL fL (81.5-99.8) MCH 30.5 pg pg (27.9-34.1) MCHC 33.6 g/dL g/dL (32.4-36.7) RDW 14.9 % % (11.5-15.2) Plt Count 218 10^3/uL 10^3/uL (150-400) MPV 8.5 fL L fL (8.7-11.7) Neut % (Auto) 72.0 % % (39.3-74.2) Lymph % (Auto) 18.1 % % (15.0-45.0) [place] % (Auto) 7.4 % % (4.5-13.0) Eos % (Auto) 1.8 % % (0.6-7.6) Baso % (Auto) 0.2 % L % (0.3-1.7) Nucleat RBC Rel Count 0.0 % % (0.0-0.2) Absolute Neuts (auto) 4.79 10^3/uL 10^3/uL (1.70-6.50) Absolute Lymphs (auto) 1.20 10^3/uL 10^3/uL (1.00-3.00) Absolute Monos (auto) 0.49 10^3/uL 10^3/uL (0.30-0.80) Absolute Eos (auto) 0.12 10^3/uL 10^3/uL (0.03-0.40) Absolute Basos (auto) 0.01 10^3/uL L 10^3/uL (0.02-0.10) Absolute Nucleated RBC 0.00 10^3/uL 10^3/uL (0-0.01) Immature Gran % 0.5 % % (0.0-1.1) Immature Gran # 0.03 10^3/uL 10^3/uL (0.00-0.10) Sodium 144 mEq/L mEq/L (135-145) Potassium 3.5 mEq/L mEq/L (3.5-5.2) Chloride 103 mEq/L mEq/L (97-110) Carbon Dioxide 27 mEq/l mEq/l (22-31) Anion Gap 14 mEq/L mEq/L (8-16) BUN 25 mg/dL H mg/dL (7-23) Creatinine 0.7 mg/dL mg/dL (0.7-1.3) Estimated GFR > 60 Glucose 99 mg/dL mg/dL (70-100) Calcium 9.7 mg/dL mg/dL (8.5-10.4) Urine Color PALE YELLOW Urine Appearance CLEAR Urine pH 6.0 (5.0-7.5) Ur Specific [place] 1.005 (1.002-1.030) Urine Protein NEGATIVE (NEGATIVE) Urine Ketones NEGATIVE (NEGATIVE) Urine Blood 3+ H (NEGATIVE) Urine Nitrate NEGATIVE (NEGATIVE) Urine Bilirubin NEGATIVE (NEGATIVE) Urine Urobilinogen NEGATIVE EU EU (0.2-1.0) Ur Leukocyte Esterase 2+ H (NEGATIVE) Urine RBC 1-3 /hpf /hpf (0-3) Urine WBC 25-50 /hpf H /hpf (0-3) Ur Epithelial Cells NONE SEEN /lpf /lpf (NONE-1+) Urine Bacteria 2+ /hpf H /hpf (NONE SEEN) Urine Mucus TRACE /lpf /lpf (NONE-1+) Urine Glucose NEGATIVE (NEGATIVE) Departure - Departure Disposition: Home, Routine, Self-Care Clinical Impression: Ngo catheter in place, Urethritis Condition: Good Instructions: Chronic Urinary Retention in Women (ED) Additional Instructions: 1. Return to the ED for fever, low blood pressure, vomiting, increasing pain or other concerns. 2. Please follow up with your primary care provider and infectious disease specialist as needed. Referrals: Jose Alberto Carmichael MD [Primary Care Provider] - As per Instructions
[2017-11-12 07:47] LABS: PLATELET COUNT 218 10^3/uL (150-400)
[2017-11-12 09:06] VITALS: BP 161/93
== END 2017-11-12 09:05 | disposition home or self-care (01) ==
PROC: 0T9B70Z Drainage of Bladder with Drainage Device, Via Natural or Artificial Opening (ICD-10-PCS; principal; 2017-11-12)
DX: N34.2 Other urethritis (principal); B96.89 Other specified bacterial agents as the cause of diseases classified elsewhere

== ENCOUNTER 2018-01-12 19:29 | Emergency (ER) | payer OTHER ==
--- NOTE | 2018-01-12 20:03 | EDPHY ---
H & P Time Seen by Provider: 01/12/18 19:44 HPI/ROS: CHIEF COMPLAINT: Feels hot fevers HISTORY OF PRESENT ILLNESS: Patient had laparoscopic hernia repair by Dr. Yinka Oglesby at [facility] on January 07, he states that he developed fever and chills at 3:00 a.m. today which is intermittent. He was discharged at noon. He presents tonight tells me he feels like he has an infection. He is flushed and feels hot. His heart is racing. He also has some lower abdominal swelling and redness and pain in the area of the hernia surgery. Not associated with vomiting or change in ostomy output. No change in the color the or appearance of his urine. REVIEW OF SYSTEMS: Eye: no change in vision ENT: no sore throat Cardiac: no chest pain Pulmonary: no cough or SOB Abdomen: no vomiting Musculoskeletal: Chronic back pain lidocaine patch Skin: Chronic open wound on his right foot with some redness which is unchanged Neuro: no headache Constitutional: HPI : No change in catheter output urine color or odor A comprehensive 10 point review of systems is otherwise negative aside from elements mentioned in the history of present illness. PAST MEDICAL HISTORY: Spine surgery, paraplegia since 1970, suprapubic catheter , spinal stimulator. Recent hernia repair as noted above, both inguinal and parastomal. Social history: Primary care is [facility], surgeon is at [facility] General Appearance: Alert and conversant, cooperative. Eyes: No scleral icterus. ENT, Mouth: Normal mucous membranes. Respiratory: Normal respiratory effort, breath sounds equal, lungs are clear to auscultation. Not wheezing. Cardiovascular: Regular rate and rhythm. Gastrointestinal: Patient has lower abdominal redness and tenderness in both quadrants. Ostomy present on the left side. Suprapubic catheter present. Neurological: Normally conversant, lower extremity weakness, appropriate speech. Skin: Chronic redness and an open wound on his right foot which is not changed from usual per the patient. Musculoskeletal: Bilateral trace pedal edema which is unchanged from usual. Psychiatric: Not agitated. Emergency Department course/MDM: Patient saturation noted at 88% but he does not appear to be short of breath at all. Chest x-ray, CT abdomen and pelvis with IV contrast to evaluate for postsurgical problem, urinalysis. Sepsis screening. 2105: CT shows fluid around ostomy, air bubbles and fluid deep to incision by pubic bone, Dr. Butler. No intraperitoneal abscess. 2125: Discussed with Goldie sanitation director for [place]. Accepts in transfer for evaluation and treatment of abdominal wall cellulitis postoperatively. 2148: Vancomycin 1 g IV, discussed with the patient reason for transfer to [facility] for evaluation by his surgeon with operation less than a week ago and clinically possibility of abdominal wall cellulitis. Patient consents, patient requested transfer for evaluation by his surgeon, benefit is evaluation by surgical team that operated on him within the last week. 2150: Discussed with Dr. Kaur from ED accepts in transfer. Smoking Status: Never smoked Constitutional: Initial Vital Signs Temperature (C) 37.1 C 01/12/18 19:33 Heart Rate 118 H 01/12/18 19:33 Respiratory Rate 20 01/12/18 19:33 Blood Pressure 136/88 H 01/12/18 19:33 O2 Sat (%) 88 L 01/12/18 19:33 O2 Delivery Mode Nasal Cannula O2 (L/minute) 2 Allergies/Adverse Reactions: promethazine HCl [From Phenergan] Allergy (Intermediate, Verified 01/12/18 19:33 ) Other-Enter Comments ANANDA Inhibitors [Ananda Inhibitors] Allergy (Mild, Verified 01/12/18 19:33) Penicillins Allergy (Mild, Verified 01/12/18 19:33) Rash DUST AND MOLDS Allergy (Intermediate, Uncoded 01/12/18 19:33) Rash promethazine HCl Allergy (Unknown, Uncoded 01/12/18 19:33) Other-Enter Comments Home Medications: Medication Instructions Recorded Bisoprolol Fumarate [Zebeta (*)] 5 mg PO DAILY 03/02/15 Losartan Potassium [Cozaar] 100 mg PO DAILY 03/02/15 Travoprost Z 0.004% [Travatan Z 1 drops EACHEYE HS 03/02/15 0.004% (*)] amLODIPine BESYLATE [Norvasc 10 mg 10 mg PO DAILY 03/02/15 (*)] Omeprazole 12/24/16 Myrbetriq 03/29/17 Travitan 03/29/17 Vitamin C 01/12/18 Vitamin D3 01/12/18 traZODONE 100MG (*) 01/12/18 Medical Decision Making - Diagnostics Imaging Results: Imaging Impressions Chest X-Ray 01/12/18 19:59 Impression: Patchy atelectasis of the lung bases bilaterally.. Abdomen CT 01/12/18 20:13 Impression: 1. Postsurgical changes within the lower anterior abdominal wall, with fluid and air bubbles present in the midline subcutaneous space below the umbilicus. There is also a left lower quadrant ostomy, with fluid surrounding the bowel. 2. Mild fluid in the left paracolic gutter region inferiorly. 3. Bilateral lower lobe atelectasis. 4. Right renal calculus. Hepatic and renal cysts. 5. Prior lumbar spine instrumentation and fusion. Results called to Dr. St at 9:10 p.m. Imaging: Discussed imaging studies w/ soil conservation technician Radiologist Differential Diagnosis: Differential considered including but not limited to abdominal wall cellulitis, subcutaneous abscess, fasciitis, intra-abdominal abscess, UTI, pneumonia. - Data Points Laboratory Results: Laboratory Results 01/12/18 20:08 01/12/18 20:08 01/12/18 01/12/18 01/12/18 20:53 20:12 20:08 WBC RBC Hgb POC Hgb 12.6 gm/dL L gm/dL (13.7-17.5) Hct POC Hct 37 % L % (40-51) MCV MCH MCHC RDW Plt Count MPV Neut % (Auto) Lymph % (Auto) Nelson % (Auto) Eos % (Auto) Baso % (Auto) Nucleat RBC Rel Count Absolute Neuts (auto) Absolute Lymphs (auto) Absolute Monos (auto) Absolute Eos (auto) Absolute Basos (auto) Absolute Nucleated RBC Immature Gran % Immature Gran # PT INR APTT VBG Lactic Acid POC Sodium 131 mEq/L L mEq/L (135-145) Sodium 131 mEq/L L mEq/L (135-145) POC Potassium 4.0 mEq/L mEq/L (3.3-5.0) Potassium 4.1 mEq/L mEq/L (3.3-5.0) POC Chloride 90 mEq/L L mEq/L (97-110) Chloride 90 mEq/L L mEq/L (97-110) Carbon Dioxide 30 mEq/l mEq/l (22-31) Anion Gap 11 mEq/L mEq/L (8-16) POC BUN 15 mg/dL mg/dL (7-23) BUN 15 mg/dL mg/dL (7-23) Creatinine 0.7 mg/dL mg/dL (0.7-1.3) POC Creatinine 0.8 mg/dL mg/dL (0.7-1.3) Estimated GFR > 60 Glucose 118 mg/dL H mg/dL (70-100) POC Glucose 125 mg/dL H mg/dL (70-100) Calcium 9.3 mg/dL mg/dL (8.5-10.4) Total Bilirubin 1.3 mg/dL mg/dL (0.1-1.4) Urine Color PALE YELLOW Urine Appearance CLEAR Urine pH 7.0 (5.0-7.5) Ur Specific [place] 1.023 (1.002-1.030) Urine Protein NEGATIVE (NEGATIVE) Urine Ketones NEGATIVE (NEGATIVE) Urine Blood 1+ H (NEGATIVE) Urine Nitrate NEGATIVE (NEGATIVE) Urine Bilirubin NEGATIVE (NEGATIVE) Urine Urobilinogen NEGATIVE EU EU (0.2-1.0) Ur Leukocyte Esterase 2+ H (NEGATIVE) Urine RBC 15-25 /hpf H /hpf (0-3) Urine WBC 3-5 /hpf H /hpf (0-3) Ur Epithelial Cells NONE SEEN /lpf /lpf (NONE-1+) Urine Mucus TRACE /lpf /lpf (NONE-1+) Urine Glucose NEGATIVE (NEGATIVE) 01/12/18 01/12/18 01/12/18 20:08 20:08 20:08 WBC 9.11 10^3/uL 10^3/uL (3.80-9.50) RBC 3.95 10^6/uL L 10^6/uL (4.40-6.38) Hgb 12.1 g/dL L g/dL (13.7-17.5) POC Hgb Hct 35.9 % L % (40.0-51.0) POC Hct MCV 90.9 fL fL (81.5-99.8) MCH 30.6 pg pg (27.9-34.1) MCHC 33.7 g/dL g/dL (32.4-36.7) RDW 14.0 % % (11.5-15.2) Plt Count 253 10^3/uL 10^3/uL (150-400) MPV 8.7 fL fL (8.7-11.7) Neut % (Auto) 77.6 % H % (39.3-74.2) Lymph % (Auto) 9.2 % L % (15.0-45.0) Nelson % (Auto) 10.2 % % (4.5-13.0) Eos % (Auto) 2.5 % % (0.6-7.6) Baso % (Auto) 0.2 % L % (0.3-1.7) Nucleat RBC Rel Count 0.0 % % (0.0-0.2) Absolute Neuts (auto) 7.06 10^3/uL H 10^3/uL (1.70-6.50) Absolute Lymphs (auto) 0.84 10^3/uL L 10^3/uL (1.00-3.00) Absolute Monos (auto) 0.93 10^3/uL H 10^3/uL (0.30-0.80) Absolute Eos (auto) 0.23 10^3/uL 10^3/uL (0.03-0.40) Absolute Basos (auto) 0.02 10^3/uL 10^3/uL (0.02-0.10) Absolute Nucleated RBC 0.00 10^3/uL 10^3/uL (0-0.01) Immature Gran % 0.3 % % (0.0-1.1) Immature Gran # 0.03 10^3/uL 10^3/uL (0.00-0.10) PT 13.3 SEC SEC (12.0-15.0) INR 0.99 (0.83-1.16) APTT 31.0 SEC SEC (23.0-38.0) VBG Lactic Acid 1.3 mmol/L mmol/L (0.7-2.1) POC Sodium Sodium POC Potassium Potassium POC Chloride Chloride Carbon Dioxide Anion Gap POC BUN BUN Creatinine POC Creatinine Estimated GFR Glucose POC Glucose Calcium Total Bilirubin Urine Color Urine Appearance Urine pH Ur Specific [place] Urine Protein Urine Ketones Urine Blood Urine Nitrate Urine Bilirubin Urine Urobilinogen Ur Leukocyte Esterase Urine RBC Urine WBC Ur Epithelial Cells Urine Mucus Urine Glucose Medications Given: Vancomycin/Sodium Chloride (Vancomycin 1 Gm (Premix)) 250 mls @ 250 mls/hr IV EDNOW ONE PRN Reason: Protocol Stop: 01/12/18 22:46 Last Admin: 01/12/18 21:58 Dose: 250 mls Discontinued Medications Sodium Chloride (Ns) 1,000 mls @ 0 mls/hr IV EDNOW ONE; Wide Open PRN Reason: Protocol Stop: 01/12/18 21:10 Last Admin: 01/12/18 21:19 Dose: 1,000 mls Point of Care Test Results: Chemistry 01/12/18 20:12 POC Sodium 131 mEq/L L mEq/L (135-145) POC Potassium 4.0 mEq/L mEq/L (3.3-5.0) POC Chloride 90 mEq/L L mEq/L (97-110) POC BUN 15 mg/dL mg/dL (7-23) POC Creatinine 0.8 mg/dL mg/dL (0.7-1.3) POC Glucose 125 mg/dL H mg/dL (70-100) ISTAT H&H 01/12/18 20:12 POC Hgb 12.6 gm/dL L gm/dL (13.7-17.5) POC Hct 37 % L % (40-51) Departure - Departure Disposition: Acute [facility] Not [facility] Clinical Impression: abdominal pain after surgery, Cellulitis, abdominal wall Condition: Good Referrals: NONE *PRIMARY CARE P,. [Primary Care Provider] - As per Instructions
[2018-01-12] MEDS ORDERED: IOPAMIDOL (ISOVUE-300) 100 ML BTL ONE (20:15)
[2018-01-12 20:25] LABS: PLATELET COUNT 253 10^3/uL (150-400)
[2018-01-12 20:32] LABS: INR 0.99 (0.83-1.16); PROTIME(PATIENT) 13.3 SEC (12.0-15.0)
[2018-01-12] MEDS ORDERED: NS 1,000 ML IV ONE (21:09)
[2018-01-12] MEDS ORDERED: VANCOMYCIN HCL/NORMAL SALINE 250 ML IV ONE (21:47)
[2018-01-12 22:57] VITALS: BP 143/84
== END 2018-01-12 22:57 | disposition short-term general hospital (02) ==
DX: G89.18 Other acute postprocedural pain (principal); R10.30 Lower abdominal pain, unspecified; L03.311 Cellulitis of abdominal wall; E86.9 Volume depletion, unspecified
CPT/HCPCS: 71046; 74177; 96361; 96365; 99285; J3370; Q9967; 82435-PO; 82565-PO; 82947-PO; 84132-PO; 84295-PO; 84520-PO; 85014-PO

== ENCOUNTER 2018-03-17 02:36 | Emergency (ER) | payer OTHER ==
[2018-03-17] MEDS ORDERED: HYDROmorphONE/DILAUDID 2 MG/ML INJ IVP ONE (03:08)
[2018-03-17] MEDS ORDERED: IOPAMIDOL (ISOVUE-300) 100 ML BTL ONE (03:10)
--- NOTE | 2018-03-17 03:11 | EDPHY ---
H & P Stated Complaint: LLQ abd pain Time Seen by Provider: 03/17/18 02:36 HPI/ROS: HPI The patient presents with left-sided lower abdominal pain that began suddenly after a sneezing episode tonight. He is status post a left-sided inguinal hernia repair and colostomy hernia repair January 07. He is brought in by ambulance. He has not had any nausea or vomiting. The pain is aching, constant , moderate in severity. He had a follow-up appointment with his general surgeon in [place] last week and was given a clean bill of health and does not have any special precautions he is to follow.. REVIEW OF SYSTEMS Constitutional: No fever, no chills. Eyes: No discharge. ENT: No sore throat. Cardiovascular: No chest pain, no palpitations. Respiratory: No cough, no shortness of breath. Gastrointestinal: Positive for abdominal pain, no vomiting. Genitourinary: No hematuria. Musculoskeletal: No back pain. Skin: No rashes. Neurological: No headache. PMHx: Paraplegia, chronic pain, chronic Ngo and ostomy Soc Hx: Housed PHYSICAL General Appearance: Alert, no distress Eyes: Pupils equal and round no pallor or injection ENT, Mouth: Mucous membranes moist Respiratory: There are no retractions, lungs are clear to auscultation Cardiovascular: Regular rate and rhythm Gastrointestinal: Abdomen is soft and tender in the left lower quadrant, ostomy pouch draining brownish stool Neurological: A&O Skin: Warm and dry, no rashes Musculoskeletal: Neck is supple non tender Extremities: symmetrical, full range of motion Psychiatric: Patient is oriented X 3, there is no agitation Source: Patient Exam Limitations: No limitations - Personal History Tetanus Vaccine Date: 2008 - Medical/Surgical History Hx Asthma: No Hx Chronic Respiratory Disease: No Hx Diabetes: No Hx Cardiac Disease: No Hx Renal Disease: No Hx Cirrhosis: No Hx Alcoholism: No Hx HIV/AIDS: No Hx Splenectomy or Spleen Trauma: No Other PMH: Back surgery x5, shoulder surgery x2, hand surgery, colostomy, paraplegic since 1970; chronic indwelling ngo catheter;botox to bladder; chronic pain., 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 - Social History Smoking Status: Never smoked Constitutional: Initial Vital Signs Temperature (C) 36.6 C 03/17/18 02:42 Heart Rate 95 03/17/18 02:42 Respiratory Rate 20 08/30/18 02:42 Blood Pressure 133/76 H 03/17/18 02:42 O2 Sat (%) 96 03/17/18 02:42 O2 Delivery Mode Room Air Allergies/Adverse Reactions: promethazine HCl [From Phenergan] Allergy (Intermediate, Verified 03/17/18 02:39 ) Other-Enter Comments ANANDA Inhibitors [Ananda Inhibitors] Allergy (Mild, Verified 03/17/18 02:39) Penicillins Allergy (Mild, Verified 03/17/18 02:39) Rash DUST AND MOLDS Allergy (Intermediate, Uncoded 03/17/18 02:39) Rash promethazine HCl Allergy (Unknown, Uncoded 03/17/18 02:39) Other-Enter Comments Home Medications: Medication Instructions Recorded Bisoprolol Fumarate [Zebeta (*)] 5 mg PO DAILY 03/02/15 Losartan Potassium [Cozaar] 100 mg PO DAILY 03/02/15 Travoprost Z 0.004% [Travatan Z 1 drops EACHEYE HS 03/02/15 0.004% (*)] amLODIPine BESYLATE [Norvasc 10 mg 10 mg PO DAILY 03/02/15 (*)] Omeprazole 12/24/16 Myrbetriq 03/29/17 Travitan 03/29/17 Vitamin C 01/12/18 Vitamin D3 01/12/18 traZODONE 100MG (*) 01/12/18 Medical Decision Making - Diagnostics Imaging Results: CT abdomen pelvis with IV contrast demonstrates no diverticulitis, no sign of hemorrhage or infection surrounding his hernia site, constipation is present, interpreted by Dr. East who I discussed the results with. Imaging: Discussed imaging studies w/ scallop cutter Radiologist Differential Diagnosis: 72-year-old man presents with left-sided lower quadrant abdominal pain, about 2 months status post inguinal hernia repair. At baseline in a wheelchair with paraplegia, ostomy, chronic indwelling Ngo catheter. Differential diagnosis includes acute on chronic pain syndrome, diverticulitis, recurrent hernia, ureterolithiasis. Labs were checked and were unremarkable. Patient was given a small dose of Dilaudid with improvement in his symptoms. CT scan of abdomen pelvis with IV contrast demonstrated no acute finding except for constipation. I discussed this with the patient. He is surprised to know that there is no serious or dangerous intra-abdominal problems. He will be discharged home. - Data Points Laboratory Results: Laboratory Results 03/17/18 02:55 03/17/18 02:55 03/17/18 03/17/18 02:55 02:55 WBC 5.53 10^3/uL 10^3/uL (3.80-9.50) RBC 4.64 10^6/uL 10^6/uL (4.40-6.38) Hgb 14.2 g/dL g/dL (13.7-17.5) Hct 42.1 % % (40.0-51.0) MCV 90.7 fL fL (81.5-99.8) MCH 30.6 pg pg (27.9-34.1) MCHC 33.7 g/dL g/dL (32.4-36.7) RDW 14.9 % % (11.5-15.2) Plt Count 178 10^3/uL 10^3/uL (150-400) MPV 8.8 fL fL (8.7-11.7) Neut % (Auto) 68.9 % % (39.3-74.2) Lymph % (Auto) 20.6 % % (15.0-45.0) [place] % (Auto) 8.5 % % (4.5-13.0) Eos % (Auto) 1.6 % % (0.6-7.6) Baso % (Auto) 0.2 % L % (0.3-1.7) Nucleat RBC Rel Count 0.0 % % (0.0-0.2) Absolute Neuts (auto) 3.81 10^3/uL 10^3/uL (1.70-6.50) Absolute Lymphs (auto) 1.14 10^3/uL 10^3/uL (1.00-3.00) Absolute Monos (auto) 0.47 10^3/uL 10^3/uL (0.30-0.80) Absolute Eos (auto) 0.09 10^3/uL 10^3/uL (0.03-0.40) Absolute Basos (auto) 0.01 10^3/uL L 10^3/uL (0.02-0.10) Absolute Nucleated RBC 0.00 10^3/uL 10^3/uL (0-0.01) Immature Gran % 0.2 % % (0.0-1.1) Immature Gran # 0.01 10^3/uL 10^3/uL (0.00-0.10) Sodium 139 mEq/L mEq/L (135-145) Potassium 3.9 mEq/L mEq/L (3.3-5.0) Chloride 103 mEq/L mEq/L (97-110) Carbon Dioxide 25 mEq/l mEq/l (22-31) Anion Gap 11 mEq/L mEq/L (8-16) BUN 26 mg/dL H mg/dL (7-23) Creatinine 0.7 mg/dL mg/dL (0.7-1.3) Estimated GFR > 60 Glucose 118 mg/dL H mg/dL (70-100) Calcium 9.9 mg/dL mg/dL (8.5-10.4) Medications Given: Discontinued Medications Hydromorphone HCl (Dilaudid) 0.5 mg IVP EDNOW ONE Stop: 03/17/18 03:09 Last Admin: 03/17/18 03:11 Dose: 0.5 mg Departure - Departure Disposition: Home, Routine, Self-Care Clinical Impression: LLQ abdominal pain, Constipation Condition: Good Instructions: Constipation (DC) Additional Instructions: I would recommend that you add MiraLax to your medication regimen taking 17 g once a day to help with constipation. This may help your symptoms. Referrals: Jaquelin Campbell MD [Primary Care Provider] - As per Instructions
[2018-03-17 03:15] LABS: PLATELET COUNT 178 10^3/uL (150-400)
[2018-03-17 06:24] VITALS: BP 108/68
== END 2018-03-17 06:15 | disposition home or self-care (01) ==
LOC: EDUNIT#
DX: R10.32 Left lower quadrant pain (principal); K59.00 Constipation, unspecified
CPT/HCPCS: 74177; 96374; 99285; J1170; Q9967

== ENCOUNTER 2018-03-23 23:03 | Emergency (ER) | payer OTHER ==
--- NOTE | 2018-03-23 23:18 | EDPHY ---
H & P Stated Complaint: abd pain Time Seen by Provider: 03/23/18 23:05 HPI/ROS: HPI The patient presents with recurrent abdominal pain which he experiences in his lower quadrants which she rates at 8/10 which has been present for the last 1 day and is achy in nature. He says that he is not emptying his ostomy much approximately only once a day and usually he empties it 4 to 5 times a day. I saw this patient myself in the emergency department on March 17 for the same pain. He had labs and a CT scan which demonstrated constipation only. His pain improved after receiving Dilaudid IV. He has been using MiraLax for the last 5 days though has not had a bowel movement. He does not have any nausea or vomiting. REVIEW OF SYSTEMS Constitutional: No fever, no chills. Eyes: No discharge. ENT: No sore throat. Cardiovascular: No chest pain, no palpitations. Respiratory: No cough, no shortness of breath. Gastrointestinal: Positive for abdominal pain, no vomiting. Genitourinary: No hematuria. Musculoskeletal: No back pain. Skin: No rashes. Neurological: No headache. PMHx: Recent inguinal hernia repair and para umbilical hernia repair, paraplegia, ostomy in place, Ngo catheter in place Soc Hx: Lives by himself PHYSICAL General Appearance: Alert, no distress Eyes: Pupils equal and round no pallor or injection ENT, Mouth: Mucous membranes moist Respiratory: There are no retractions, lungs are clear to auscultation Cardiovascular: Regular rate and rhythm Gastrointestinal: Abdomen is soft and non-tender, ostomy in place with minimal stool output, no masses, bowel sounds normal Neurological: A&O, moves all extremities Skin: Warm and dry, no rashes Musculoskeletal: Neck is supple non tender Extremities: symmetrical, full range of motion Psychiatric: Patient is oriented X 3, there is no agitation Source: Patient, EMS, Old records - Personal History Tetanus Vaccine Date: 2008 - Medical/Surgical History Hx Asthma: No Hx Chronic Respiratory Disease: No Hx Diabetes: No Hx Cardiac Disease: No Hx Renal Disease: No Hx Cirrhosis: No Hx Alcoholism: No Hx HIV/AIDS: No Hx Splenectomy or Spleen Trauma: No Other PMH: Back surgery x5, shoulder surgery x2, hand surgery, colostomy, paraplegic since 1970; chronic indwelling ngo catheter;botox to bladder; chronic pain., 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 - Social History Smoking Status: Never smoked Constitutional: Initial Vital Signs Temperature (C) 36.6 C 03/23/18 23:07 Heart Rate 86 03/23/18 23:07 Respiratory Rate 16 03/23/18 23:07 Blood Pressure 138/87 H 03/23/18 23:07 O2 Sat (%) 97 03/23/18 23:07 O2 Delivery Mode Room Air Allergies/Adverse Reactions: promethazine HCl [From Phenergan] Allergy (Intermediate, Verified 03/17/18 02:39 ) Other-Enter Comments ANANDA Inhibitors [Ananda Inhibitors] Allergy (Mild, Verified 03/17/18 02:39) Penicillins Allergy (Mild, Verified 03/17/18 02:39) Rash DUST AND MOLDS Allergy (Intermediate, Uncoded 03/17/18 02:39) Rash promethazine HCl Allergy (Unknown, Uncoded 03/17/18 02:39) Other-Enter Comments Home Medications: Medication Instructions Recorded Bisoprolol Fumarate [Zebeta (*)] 5 mg PO DAILY 03/02/15 Losartan Potassium [Cozaar] 100 mg PO DAILY 03/02/15 Travoprost Z 0.004% [Travatan Z 1 drops EACHEYE HS 03/02/15 0.004% (*)] amLODIPine BESYLATE [Norvasc 10 mg 10 mg PO DAILY 03/02/15 (*)] Omeprazole 12/24/16 Myrbetriq 03/29/17 Travitan 03/29/17 Vitamin C 01/12/18 Vitamin D3 01/12/18 traZODONE 100MG (*) 01/12/18 Medical Decision Making - Diagnostics Imaging Results: Imaging Impressions Abdomen X-Ray 03/23/18 23:18 Impression: Nonobstructive bowel gas pattern. Imaging: I viewed and interpreted images myself Differential Diagnosis: 72-year-old man with history of colostomy, chronic indwelling Ngo, status post left inguinal hernia repair and paraumbilical hernia repair in December of this year presents with left-sided abdominal pain and constipation. On exam, vital signs are normal and he is generally well-appearing. His abdominal exam is benign without any distension or tenderness to palpation. Labs were checked in the emergency department and were normal. A KUB was unremarkable for any air-fluid levels. The patient had a CT scan performed about 1 week ago which was unremarkable showing mild constipation. History suggests that he is having constipation currently. He is able to tolerate p.o. Without difficulty and is not having any vomiting making small-bowel obstruction less likely. He recently took calcium magnesium supplements and iron pills which may be contributing to his constipation. We have discussed risks and benefits of CT scan and we have decided to hold off on further imaging for now. He has had many CT scans in his life. He requests GoLSUSANNAHLY to go home with as he has taken this before and has had normal bowel movements. I will get this to him and we will discharge him home. He is happy with the plan. - Data Points Laboratory Results: Laboratory Results 03/23/18 23:16 03/23/18 23:16 03/23/18 03/23/18 23:16 23:16 WBC 4.11 10^3/uL 10^3/uL (3.80-9.50) RBC 4.31 10^6/uL L 10^6/uL (4.40-6.38) Hgb 13.4 g/dL L g/dL (13.7-17.5) Hct 39.9 % L % (40.0-51.0) MCV 92.6 fL fL (81.5-99.8) MCH 31.1 pg pg (27.9-34.1) MCHC 33.6 g/dL g/dL (32.4-36.7) RDW 15.1 % % (11.5-15.2) Plt Count 172 10^3/uL 10^3/uL (150-400) MPV 8.8 fL fL (8.7-11.7) Neut % (Auto) 70.2 % % (39.3-74.2) Lymph % (Auto) 21.9 % % (15.0-45.0) [place] % (Auto) 5.8 % % (4.5-13.0) Eos % (Auto) 1.7 % % (0.6-7.6) Baso % (Auto) 0.2 % L % (0.3-1.7) Nucleat RBC Rel Count 0.0 % % (0.0-0.2) Absolute Neuts (auto) 2.88 10^3/uL 10^3/uL (1.70-6.50) Absolute Lymphs (auto) 0.90 10^3/uL L 10^3/uL (1.00-3.00) Absolute Monos (auto) 0.24 10^3/uL L 10^3/uL (0.30-0.80) Absolute Eos (auto) 0.07 10^3/uL 10^3/uL (0.03-0.40) Absolute Basos (auto) 0.01 10^3/uL L 10^3/uL (0.02-0.10) Absolute Nucleated RBC 0.00 10^3/uL 10^3/uL (0-0.01) Immature Gran % 0.2 % % (0.0-1.1) Immature Gran # 0.01 10^3/uL 10^3/uL (0.00-0.10) Sodium 137 mEq/L mEq/L (135-145) Potassium 3.4 mEq/L mEq/L (3.3-5.0) Chloride 100 mEq/L mEq/L (97-110) Carbon Dioxide 28 mEq/l mEq/l (22-31) Anion Gap 9 mEq/L mEq/L (8-16) BUN 21 mg/dL mg/dL (7-23) Creatinine 0.7 mg/dL mg/dL (0.7-1.3) Estimated GFR > 60 Glucose 125 mg/dL H mg/dL (70-100) Calcium 9.2 mg/dL mg/dL (8.5-10.4) Total Bilirubin 1.0 mg/dL mg/dL (0.1-1.4) AST 16 IU/L L IU/L (17-59) ALT 26 IU/L IU/L (21-72) Alkaline Phosphatase 71 IU/L IU/L (38-126) Total Protein 7.1 g/dL g/dL (6.3-8.2) Albumin 3.8 g/dL g/dL (3.5-5.0) Medications Given: Discontinued Medications Polyethylene Glycol/Electrolytes (Gavilyte - G) 4,000 ml PO ONCE ONE Stop: 03/23/18 23:57 Last Admin: 03/24/18 00:10 Dose: 4,000 ml Departure - Departure Disposition: Home, Routine, Self-Care Clinical Impression: Abdominal pain Qualifiers: Abdominal location: generalized Qualified Code(s): R10.84 - Generalized abdominal pain Constipation Qualifiers: Constipation type: unspecified constipation type Qualified Code(s): K59.00 - Constipation, unspecified Condition: Good Instructions: Constipation (ED) Additional Instructions: If you do not improved with the GoLYTELY I recommend that you follow up with your primary care doctor. You should return to the emergency department if your worse in any way. Referrals: Jaquelin Campbell MD [Primary Care Provider] - As per Instructions
[2018-03-23 23:21] LABS: PLATELET COUNT 172 10^3/uL (150-400)
[2018-03-23] MEDS ORDERED: PEG 3350/NA SULF,BICARB,CL/KCL (GAVILYTE-G) 4000 ML BTL PO ONE (23:56)
[2018-03-24 01:00] VITALS: BP 138/87
== END 2018-03-24 01:04 | disposition home or self-care (01) ==
LOC: EDUNIT#
DX: R10.84 Generalized abdominal pain (principal); K59.00 Constipation, unspecified; E86.9 Volume depletion, unspecified; G82.20 Paraplegia, unspecified; Z96.0 Presence of urogenital implants; Z93.3 Colostomy status

== ENCOUNTER 2018-09-01 22:05 | Emergency (ER) | payer OTHER ==
[2018-09-01] MEDS ORDERED: DIAZEPAM 5 MG TAB PO ONE ×2 (22:14→22:16)
[2018-09-01] MEDS ORDERED: DIAZEPAM 5 MG TAB ONE (22:14)
--- NOTE | 2018-09-01 22:54 | EDPHY ---
General Time Seen by Provider: 09/01/18 22:11 Narrative: CLINICAL IMPRESSION: Tracy catheter malfunction ASSESSMENT/PLAN: 72-year-old male with a chronic indwelling Tracy catheter presents to the emergency department with Tracy catheter malfunction. Patient states that 2 being became disconnected from the bag. He has no associated abdominal pain, nausea, vomiting, fever or chills. Tracy catheter was replaced and is functioning well. Patient is comfortable and ready for discharge. Warning signs for return to emergency department sooner outlined and discharge. DIFFERENTIAL DX: Differential includes but not limited to UTI, Tracy catheter malfunction ED PROCEDURES: See lab and/or imaging results below Tracy catheter replaced by hvac engineering technician CHIEF COMPLAINT: Tracy catheter malfunction HPI: 72-year-old male, paraplegic with a indwelling Tracy catheter presents to the emergency department today with Tracy catheter malfunction. Patient reports his blood pressure spiked and he began noticing urine leaking around the Tracy catheter itself and came to the ED for replacement. He otherwise has no complaints including abdominal pain, pelvic pain, fever, chills, nausea or vomiting PAST MEDICAL HISTORY: Paraplegic with Tracy catheter and colostomy bag See triage summary and nurse notes for addition applicable history Pertinent Past Surgical History: Prior orthopedic surgeries, spinal stimulator implanted, chronic pain Family History: Noncontributory Social History: Wheelchair-bound REVIEW OF SYSTEMS: A full 10 point review of systems was negative except for those mentioned in HPI. PHYSICAL EXAM: General Appearance: Alert, oriented, appropriate, cooperative, NAD, well hydrated, non-toxic appearing, VSS, no hypoxia. Respiratory: There are no retractions, lungs are clear to auscultation. Cardiac: Regular rate and rhythm, no murmurs or gallops. Gastrointestinal: Abdomen is soft, nontender, bowel sounds normal, no masses/ hernia, no rigidity, guarding or focal peritoneal findings. Tracy catheter replaced by ED radiological technician, functioning appropriately Skin: Warm, dry, no rashes, no nodules on palpation. MEDICAL DECISION MAKING: Patient was seen independently. Secondary supervising physician at time of evaluation was: Dr. Sellers. Diagnosis: Tracy catheter malfunction. New, requires workup Summary: See Assessment and Plan for summary of ED visit Patient Progress: Stable for discharge. - History Smoking Status: Never smoked - Objective Vital Signs: Initial Vital Signs Temperature (C) 36.7 C 09/01/18 22:10 Heart Rate 82 09/01/18 22:10 Respiratory Rate 18 09/01/18 22:10 O2 Sat (%) 98 09/01/18 22:10 O2 Delivery Mode Room Air Allergies/Adverse Reactions: promethazine HCl [From Phenergan] Allergy (Intermediate, Verified 09/01/18 22:20 ) Other-Enter Comments ANANDA Inhibitors [Ananda Inhibitors] Allergy (Mild, Verified 09/01/18 22:20) Penicillins Allergy (Mild, Verified 09/01/18 22:20) Rash gabapentin Allergy (Unknown, Unverified 09/01/18 22:20) DUST AND MOLDS Allergy (Intermediate, Uncoded 09/01/18 22:20) Rash Phenergan Allergy (Unknown, Uncoded 09/01/18 22:20) promethazine HCl Allergy (Unknown, Uncoded 09/01/18 22:20) Other-Enter Comments Home Medications: Medication Instructions Recorded Bisoprolol Fumarate [Zebeta (*)] 5 mg PO DAILY 03/02/15 Losartan Potassium [Cozaar] 100 mg PO DAILY 03/02/15 Travoprost Z 0.004% [Travatan Z 1 drops EACHEYE HS 03/02/15 0.004% (*)] amLODIPine BESYLATE [Norvasc 10 mg 10 mg PO DAILY 03/02/15 (*)] Omeprazole 12/24/16 Myrbetriq 03/29/17 Travitan 03/29/17 Vitamin C 01/12/18 Vitamin D3 01/12/18 traZODONE 100MG (*) 01/12/18 traMADol [Ultram 50 mg (*)] 50 mg PO Q4 09/01/18 Medications Given: Discontinued Medications Diazepam (Valium) 2.5 mg PO EDNOW ONE Stop: 09/01/18 22:15 Last Admin: 09/01/18 22:28 Dose: Not Given Diazepam (Valium) 5 mg PO EDNOW ONE Stop: 09/01/18 22:17 Last Admin: 09/01/18 22:17 Dose: 5 mg Departure - Departure Disposition: Home, Routine, Self-Care Clinical Impression: Tracy catheter problem Qualifiers: Encounter type: initial encounter Qualified Code(s): T83.9XXA - Unspecified complication of genitourinary prosthetic device, implant and graft, initial encounter Condition: Good Instructions: Tracy Catheter Placement and Care (ED) Additional Instructions: DISCHARGE INSTRUCTIONS FROM YOUR DOCTOR Thank you for visiting our emergency department today. You were treated by a physician sales office assistant today and your case was reviewed with our ED Attending physician. Please keep in mind that discharge from the emergency department does not mean that there is nothing wrong - it simply means that we have not identified an emergency condition that requires further evaluation or treatment in the hospital. You should always plan to follow up with primary care for re- evaluation of your condition in the next 2-3 days. If you have been referred to a specialist, please call as soon as possible (today or tomorrow) to schedule your follow up appointment at the appropriate time. YOUR TARCY CATHETER WAS REPLACED IN THE EMERGENCY DEPARTMENT. PLEASE FOLLOW- UP WITH YOUR PRIMARY CARE DOCTOR. RETURN TO THE ED FOR ANY OTHER CONCERNS REGARDING THE CATHETER, ABDOMINAL PAIN, FEVER OR ANY OTHER CONCERN. People present with illnesses and injuries in different ways, and it is always possible that we have missed something. You may always return for re-evaluation if symptoms worsen or if they are not improving or if you develop new/different symptoms. Again, thank you for choosing our emergency department. We hope that you feel better. Referrals: Jaquelin Campbell MD [Primary Care Provider] - 1-2 days without fail
[2018-09-01 23:34] VITALS: BP 111/97
== END 2018-09-01 23:34 | disposition home or self-care (01) ==
PROC: 0T9B70Z Drainage of Bladder with Drainage Device, Via Natural or Artificial Opening (ICD-10-PCS; principal; 2018-09-01)
DX: T83.9XXA Unspecified complication of genitourinary prosthetic device, implant and graft, initial encounter (principal); G82.20 Paraplegia, unspecified; Z96.0 Presence of urogenital implants; Z93.3 Colostomy status

== ENCOUNTER 2018-10-14 17:13 | Emergency (ER) | payer OTHER ==
--- NOTE | 2018-10-14 18:07 | EDPHY ---
H & P Stated Complaint: urinating around catheter, pain to urethra Time Seen by Provider: 10/14/18 18:07 - Personal History Current Tetanus Diphtheria and Acellular Pertussis (TDAP): Yes Tetanus Vaccine Date: 2017 - Medical/Surgical History Hx Asthma: No Hx Chronic Respiratory Disease: No Hx Diabetes: No Hx Cardiac Disease: No Hx Renal Disease: No Hx Cirrhosis: No Hx Alcoholism: No Hx HIV/AIDS: No Hx Splenectomy or Spleen Trauma: No Other PMH: Back surgery x5, shoulder surgery x2, hand surgery, colostomy, paraplegic since 1971; chronic indwelling tracy catheter;botox to bladder; chronic pain., 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 - Social History Smoking Status: Never smoked Constitutional: Initial Vital Signs Temperature (C) 36.5 C 10/14/18 17:17 Heart Rate 83 10/14/18 17:17 Respiratory Rate 18 10/14/18 17:17 Blood Pressure 141/82 H 10/14/18 17:17 O2 Sat (%) 93 10/14/18 17:17 O2 Delivery Mode Room Air Allergies/Adverse Reactions: promethazine HCl [From Phenergan] Allergy (Intermediate, Verified 10/14/18 17:16 ) Other-Enter Comments ANANDA Inhibitors [Ananda Inhibitors] Allergy (Mild, Verified 10/14/18 17:16) Penicillins Allergy (Mild, Verified 10/14/18 17:16) Rash gabapentin Allergy (Unknown, Unverified 10/14/18 17:16) DUST AND MOLDS Allergy (Intermediate, Uncoded 10/14/18 17:16) Rash Phenergan Allergy (Unknown, Uncoded 10/14/18 17:16) promethazine HCl Allergy (Unknown, Uncoded 10/14/18 17:16) Other-Enter Comments Home Medications: Medication Instructions Recorded Bisoprolol Fumarate [Zebeta (*)] 5 mg PO DAILY 03/02/15 Losartan Potassium [Cozaar] 100 mg PO DAILY 03/02/15 Travoprost Z 0.004% [Travatan Z 1 drops EACHEYE HS 03/02/15 0.004% (*)] amLODIPine BESYLATE [Norvasc 10 mg 10 mg PO DAILY 03/02/15 (*)] Omeprazole 12/24/16 Myrbetriq 03/29/17 Travitan 03/29/17 Vitamin C 01/12/18 Vitamin D3 01/12/18 traZODONE 100MG (*) 01/12/18 traMADol [Ultram 50 mg (*)] 50 mg PO Q4 09/01/18 Medical Decision Making ED Course/Re-evaluation: CHIEF COMPLAINT: "Catheter problems" HISTORY OF PRESENT ILLNESS: 72-year-old male, paraplegic with a indwelling Tracy catheter presents to the emergency department today with Tracy catheter malfunction. Patient reports that he began noticing urine leaking around the Tracy catheter itself and came to the ED for replacement. He typically receives 5mg Valium to relax during the replacement of the Tracy catheter. He otherwise has no complaints including abdominal pain, pelvic pain, fever, chills, nausea or vomiting. REVIEW OF SYSTEMS: A comprehensive 10 system review of systems is otherwise negative aside from elements mentioned in the history of present illness and medical decision making. PHYSICAL EXAM: HR, BP, O2 Sat, RR. Temp noted General Appearance: Alert, well hydrated, appropriate, and non-toxic appearing. Head: Atraumatic without scalp tenderness or obvious injury Eyes: Pupils equal, round, reactive to light and accommodation, EOMI, no trauma , no injection. Ears: Clear bilaterally, no perforation, normal landmarks Nose: Atraumatic, no rhinorrhea, clear. Throat: There is no erythema or exudates, no lesions, normal tonsils, mucus membranes moist. Neck: Supple, 2+ carotid upstroke, nontender, no lymphadenopathy. Respiratory: No retractions, no distress, no wheezes, and no accessory muscle use. Lungs are clear to auscultation bilaterally. Cardiovascular: Regular rate and rhythm, no murmurs, rubs, or gallops. Bilateral carotid, radial, dorsalis pedis, and posterior tibial pulses intact. Good capillary refill all extremities. Gastrointestinal: Tracy catheter in place. Abdomen is soft, nontender, non- distended, no masses, no rebound, no guarding, no peritoneal signs. Musculoskeletal: Normal active ROM of all extremities, atraumatic. Neurological: Alert, appropriate, and interactive. The patient has normal DTRs and non-focal cranial nerves, motor, sensory, and cerebellar exam. Skin: No rashes, good turgor, no nodules on palpation. Past medical history: Paraplegic with Tracy catheter and colostomy bag Past surgical history: Prior orthopedic surgeries, spinal stimulator implanted , chronic pain Family history: Denies Social history: Wheelchair bound, retired, single DIAGNOSTICS/PROCEDURES/CRITICAL CARE TIME: Tracy catheter replaced by pathology tech DIFFERENTIAL DIAGNOSIS: Differential includes but not limited to UTI, Tracy catheter malfunction MEDICAL DECISION MAKIN-year-old male, paraplegic with a indwelling Tracy catheter presents to the emergency department today with Tracy catheter malfunction. 5mg Valium administered to relax during the replacement of the Tracy catheter. Patient's catheter will be replaced and he is safe to be discharged home. Return precautions provided; patient is comfortable with this plan. - Data Points Medications Given: Discontinued Medications Diazepam (Valium) 5 mg PO EDNOW ONE Stop: 10/14/18 18:11 Last Admin: 10/14/18 18:14 Dose: 5 mg Departure - Departure Disposition: Home, Routine, Self-Care Clinical Impression: Tracy catheter in place Condition: Good Instructions: Tracy Catheter Placement and Care (ED) Additional Instructions: DISCHARGE INSTRUCTIONS FROM YOUR DOCTOR Thank you for visiting our emergency department today. You were treated by a physician promotions assistant today and your case was reviewed with our ED Attending physician. Please keep in mind that discharge from the emergency department does not mean that there is nothing wrong - it simply means that we have not identified an emergency condition that requires further evaluation or treatment in the hospital. You should always plan to follow up with primary care for re- evaluation of your condition in the next 2-3 days. If you have been referred to a specialist, please call as soon as possible (today or tomorrow) to schedule your follow up appointment at the appropriate time. YOUR TRACY CATHETER WAS REPLACED IN THE EMERGENCY DEPARTMENT. PLEASE FOLLOW- UP WITH YOUR PRIMARY CARE DOCTOR. RETURN TO THE ED FOR ANY OTHER CONCERNS REGARDING THE CATHETER, ABDOMINAL PAIN, FEVER OR ANY OTHER CONCERN. People present with illnesses and injuries in different ways, and it is always possible that we have missed something. You may always return for re-evaluation if symptoms worsen or if they are not improving or if you develop new/different symptoms. Again, thank you for choosing our emergency department. We hope that you feel better. Referrals: Jaquelin Campbell MD [Primary Care Provider] - As per Instructions Report Scribed for: Ayaan Adhikari Report Scribed by: Sheryl Castano Date of Report: 10/14/18 Time of Report: 18:16
[2018-10-14] MEDS ORDERED: DIAZEPAM 5 MG TAB PO ONE (18:10)
[2018-10-14 19:17] VITALS: BP 138/87
[2018-10-14] MEDS ORDERED: LIDOCAINE 2% JELLY 20 ML (UROJECT) UR ONE (19:21)
== END 2018-10-14 19:44 | disposition home or self-care (01) ==
PROC: 0T9B70Z Drainage of Bladder with Drainage Device, Via Natural or Artificial Opening (ICD-10-PCS; principal; 2018-10-14)
DX: T83.031A Leakage of indwelling urethral catheter, initial encounter (principal); G82.20 Paraplegia, unspecified; Z96.0 Presence of urogenital implants; Z93.3 Colostomy status